=== PATIENT | female | born 1990 | race Caucasian/White ===

== ENCOUNTER 2016-07-24 01:44 | Inpatient (IN) | payer OTHER, MEDICAID ==
[2016-07-24 02:38] LABS: APPEARANCE,URINE CLEAR; BILIRUBIN,URINE NEGATIVE (NEGATIVE); GLUCOSE, URINE NEGATIVE (NEGATIVE); KETONES,URINE NEGATIVE (NEGATIVE); LEUKOCYTE ESTERASE,URINE NEGATIVE (NEGATIVE); NITRITE,URINE NEGATIVE (NEGATIVE); PROTEIN,URINE NEGATIVE (NEGATIVE); URINE SPECIFIC GRAVITY 1.009; UROBILINOGEN,URINE NEGATIVE mg/dL (<2.0)
[2016-07-24 02:38] LABS: AMNISURE (ROM) POSITIVE (NEGATIVE)
[2016-07-24 02:52] LABS: URINE BARBITURATES SCREEN NEGATIVE; URINE METHADONE SCREEN NEGATIVE; URINE OPIATES LOW NEGATIVE; URINE PHENCYCLIDINE SCREEN NEGATIVE
[2016-07-24] MEDS ORDERED: RINGERS SOLUTION,LACTATED 1,000 ML IV ONE (03:01)
[2016-07-24] MEDS ORDERED: RINGERS SOLUTION,LACTATED 1,000 ML IV PRN (03:01)
[2016-07-24 03:29] LABS: ABSOLUTE BASOPHILS # (AUTO) 0.1 10^3/uL (0.0-0.2); ABSOLUTE EOSINOPHILS # (AUTO) 0.1 10^3/uL (0.0-0.6); ABSOLUTE LYMPHOCYTES (AUTO) 2.1 10^3/uL (0.5-4.7); ABSOLUTE NEUT (AUTO) 8.8 10^3/uL (1.7-8.2); BASOPHILS % (AUTO) 0.4 % (0-2); EOSINOPHILS % (AUTO) 0.8 % (0-6); HEMATOCRIT 38.8 % (36.0-47.0); HEMOGLOBIN 13.2 g/dL (12.0-15.5); HGB HCT DIFFERENCE 0.8; LYMPHOCYTES % (AUTO) 17.2 % (13-45); MEAN CORPUSCULAR HEMOGLOBIN 29.2 pg (27.0-33.4); MEAN CORPUSCULAR HGB CONC 34.1 g/dL (32.0-36.0); MEAN CORPUSCULAR VOLUME 86 fl (80-97); MONOCYTES % (AUTO) 8.3 % (3-13); RED BLOOD COUNT 4.53 10^6/uL (3.72-5.28); SEGMENTED NEUTROPHILS % (AUTO) 73.3 % (42-78); WHITE BLOOD COUNT 12.1 10^3/uL (4.0-10.5)
[2016-07-24] MEDS ORDERED: MISOPROSTOL 0.2 MG TABLET ONE ×2 (04:55→04:57)
[2016-07-24] MEDS ORDERED: OXYTOCIN/NORMAL SALINE 0 UNIT/0 ML RTUINJ ONE (04:55)
[2016-07-24] MEDS ORDERED: LIDOCAINE 1% INJ-PF (10 MG/ML) 30 ML SDV ONE ×2 (04:55→04:57)
[2016-07-24] MEDS ORDERED: OXYTOCIN/NORMAL SALINE 20 UNIT/1,000 ML RTUINJ ONE (04:57)
[2016-07-24] MEDS ORDERED: DIPH/PERTUSS(ACELL)/TETANUS VAC/PF 0.5 ML SYR (>=10YO) IM PRN (05:23)
[2016-07-24] MEDS ORDERED: OXYTOCIN/NORMAL SALINE 1,000 ML IV PRN (05:23)
[2016-07-24] MEDS ORDERED: DIBUCAINE 1% OINTMENT 28 GM TP PRN (05:23)
[2016-07-24] MEDS ORDERED: BENZOCAINE/MENTHOL AEROSOL SPRAY 56 ML TOP PRN (05:23)
[2016-07-24] MEDS ORDERED: ZOLPIDEM TARTRATE 5 MG TABLET PO PRN (05:23)
[2016-07-24] MEDS ORDERED: MEASLES,MUMPS&RUBELLA VACC/PF 0.5 ML VIAL SUBCUT PRN (05:23)
[2016-07-24] MEDS ORDERED: ACETAMINOPHEN WITH CODEINE #3 TABLET ONE (05:42)
[2016-07-24] MEDS: ACETAMINOPHEN WITH CODEINE #3 TABLET PO PRN ×3 (05:42→21:52)
--- NOTE | 2016-07-24 06:53 | Delivery Summary ---
Del Sum A-C Datetime Report Generated by CPN: 07/24/2016 06:52 ADMISSION DATA Chief Complaint: Uterine Contractions; Suspected Ruptured Membranes Indication for Induction: PROM; Maternal Diabetes Admission Impression: Term, Intrauterine ; Ruptured Membranes Admit Provider Comments: 26yo at 38+4ega (pelvis proven to 6#9oz at 36wks) presents for SROM at 4.5/70/-2. c/b GDM - diet controlled. GBS negative. Rh negative. G1 - downs syndrome. Informaseq no aneuploidy. Anesthesia notified re: request for IV. EFW approx 6-7#. Anticipate . DELIVERY PERSONNEL Delivery Doctor:: Tania Waggoner MD Labor and Delivery Nurse:: Marcia Patton RN Labor and Delivery Nurse:: Rekha Joshi RN Additional Personnel: : Christine Dominguez RN MATERNAL INFORMATION Delivery Anesthesia: None Medications After Delivery: Pitocin Drip 20 Units/1000ml NSS Maternal Complications: Precipitous Labor (<3hrs) Provider Comments: VMI delivered in OXANA presentation. Loose nuchal cord reduced. Shoulders and body delivered w/o difficulty. Cord doubly clamped and cut and infant to maternal abdomen for skin to skin and NRP. Placenta delivered intact spontaneously. FF at U. Good hemostasis after repair. Apgars 7/9. Weight pending. Mother and baby stable upon provider leaving the room. LABOR SUMMARY EDC: 08/03/2016 00:00 No. Babies in Womb: 1 Attempted: No Labor Anesthesia: None LABOR INFORMATION Reason for Induction: Not Applicable Onset of Labor: 07/24/2016 00:15 Oxytocin: N/A Group B Beta Strep: Negative Antibiotics # of Doses: 0 Steroids Given: None Reason Steroids Not Administered: Not Applicable MEMBRANES Membranes Rupture Method: Spontaneous Rupture of Membranes: 07/24/2016 00:15 Length of Rupture (hr): 4.87 Amniotic Fluid Color: Clear Amniotic Fluid Amount: Small Amniotic Fluid Odor: Normal STAGES OF LABOR Stage 3 hr: 0 Stage 3 min: 3 Total Time in Labor hr: 4 Total Time in Labor min: 55 VAGINAL DELIVERY Laceration Extension: First Degree Laceration Type: Periurethral Laceration Repair: Yes Laceration Repair Note: Periclitoral superficial laceration repaired in usual fashion for hemostasis. Sponge Count Correct: N/A Sharps Count Correct: Yes CSECTION DELIVERY Primary Indication: N/A Secondary Indication: N/A CSection Incidence: N/A Labor: N/A Elective: N/A CSection Incision: N/A BABY A INFORMATION Infant Delivery Date/Time: 07/24/2016 05:07 Method of Delivery: Vaginal Born in Route : No : N/A Forceps: N/A Vacuum Extraction: N/A Shoulder Dystocia : No PRESENTATION/POSITION BABY A Presentation: Cephalic Cephalic Presentation: Vertex Vertex Position: Left Occipital Anterior Breech Presentation: N/A PLACENTA INFORMATION BABY A Placenta Delivery Time : 07/24/2016 05:10 Placenta Method of Delivery: Spontaneous Placenta Status: Delivered SCORES BABY A Heart Rate 1 min: >100 bpm Resp Effort 1 min: Slow, Irregular Reflex Irritability 1 min: Cough or Sneeze or Pulls Away Muscle Tone 1 min: Active Motion Color 1 min: Blue/Pale Resuscitation Effort 1 min: Tactile Stimulation SCORE 1 MIN: 7 Heart Rate 5 min: >100 bpm Resp Effort 5 min: Good Cry Reflex Irritability 5 min: Cough or Sneeze or Pulls Away Muscle Tone 5 min: Active Motion Color 5 min: Body Point Place, Extremities Blue Resuscitation Effort 5 min: Tactile Stimulation SCORE 5 MIN: 9 INFANT INFORMATION BABY A Gestational Age at Delivery: 38.4 Gestational Status: Early Term- 37- 38.6 Weeks Outcome : Liveborn Infant Condition : Stable Infant Sex: Male IDENTIFICATION BABY A Infant Verification Date/Time: 07/24/2016 05:14 ID Band Number: [id number] Mother's Name Verified: Yes Infant RN Verifying Infant: Johnathon EVON Johnson Additional Verifying Personnel: Samira Dominguez RN WEIGHT/LENGTH BABY A Infant Birthweight (gm): 3135 Infant Weight (lb): 6 Infant Weight (oz): 15 Infant Length (in): 19.00 Infant Length (cm): 48.26 CORD INFORMATION BABY A No. Cord Vessels: 3 Nuchal Cord : Around Neck x1, Loose Cord Blood Taken: Yes-For Eval (Mom's Blood Type - or O+) ASSESSMENT BABY A Infant Complications: None Infant Respirations: Appears Normal Skin to Skin: Yes Skin to Skin Time (min): 60 Mesh Man/ALS Called : No Infant Care By: Annette Joshi RN Transferred To: Remains with Mother BABY B INFORMATION : N/A SIGNATURES Signature: with User ID: [email or web address]
--- NOTE | 2016-07-24 07:43 | Admission Physical ---
Datetime Report Generated by CPN: 07/24/2016 07:43 CURRENT ADMISSION Chief Complaint: Uterine Contractions; Suspected Ruptured Membranes Indication for Induction: PROM; Maternal Diabetes Admit Plan: Admit to Unit; Initiate Labor Augmentation Protocol ALLERGIES Medication Allergies: Yes Medication Allergies: naproxen sodium/Hives (07/24/2016) Latex: No Latex Allergies Food Allergies: NA Environmental Allergies: NA OBSTETRICAL HISTORY EDC: 08/03/2016 00:00 : 2 Para: 1 Term: 0 : 1 SAB: 0 IAB: 0 Ectopic: 0 Livin Cesareans: 0 VBACs: 0 Multiple Births: 0 Gestational Diabetes: Yes Rh Sensitization: No Incompetent Cervix: No SAIMA: No Infertility: No ART Treatment: No Uterine Anomaly: No IUGR: No Hx Previous C/S: No Macrosomia: No Hx Loss/Stillborn: No PIH: No Hx : No Placenta Previa/Abruption: No Depression/PP Depression: No PTL/PROM: No Post Hemorrhage: No Current Procedures: Ultrasound Obstetrical History Comments: G1- @ 36.2 wks gest-Male 6lbs 9oz. G2-Current SEE RECORDS Alcohol: No Marijuana : No Cocaine: No Other Illicit Drugs: No Cigarettes: Never Smoker. 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 Surgery: No Heart Disease: No Hosp/Surgery: Yes Autoimmune Disorder: No Anesthetic Complications: No Kidney Disease: No Abnormal Pap Smear: No Neuro/Epilepsy: No Psychiatric Disorders: No Other Medical Diseases: No Hepatitis/Liver Disease: No Significant Family History: No Varicosities/Phlebitis: No Trauma/Violence : No Thyroid Dysfunction: No Medical History Comments: childbirth; Left arm injury at 2y/o; INFECTIOUS HISTORY Gonorrhea: No Genital Herpes: No Chlamydia: No Tuberculosis: No Syphilis: No Hepatitis: No HIV/AIDS Exposure: No Rash or Viral Illness: No HPV: No PHYSICAL EXAM General: Normal HEENT: Normal Neurologic: Normal Thyroid: Normal Heart: Normal Lungs: Normal Breast: Deferred Back: Normal Abdomen: Normal Genitourinary Exam: Normal Extremities: Normal DTRs: Normal Pelvic Type: Adequate Vital Signs: Reviewed VAGINAL EXAM Dilatation: 5 Effacement: 70 Station: -2 MEMBRANES Membranes: Ruptured Amniotic Fluid Color: Clear FETUS A EGA: 38.4 Monitoring: External US FHR- Baseline: 130 Variability: Moderate 6-25bpm Accelerations: 15X15 Decelerations: None FHR Category: Category I Estimated Weight (gm): 3008 Presentation: Vertex Admit Comment: 26yo at 38+4ega (pelvis proven to 6#9oz at 36wks) presents for SROM at 4.5/70/-2. c/b GDM - diet controlled. GBS negative. Rh negative. G1 - downs syndrome. Informaseq no aneuploidy. Anesthesia notified re: request for IV. EFW approx 6-7#. Anticipate . PLANS FOR LABOR AND DELIVERY Labor and Delivery: None Feeding Preference: Breast Benefit of Breast Feed Discussed: Yes Circumcision: Yes INFORMED CONSENT Informed Consent Obtained: Vaginal Delivery; Risks, Benefits and Alternatives Discussed Signature: with User ID: [email or web address]
--- NOTE | 2016-07-24 08:01 | L&D Flow Sheet ---
LD Flowsheet Datetime Report Generated by CPN: 07/24/2016 08:00 Datetime: 07/24/2016 07:25 Vital Signs Stage of : Recovery (Maria Fernanda Reyna, RN) Datetime: 07/24/2016 07:17 NBP Sys/Selena/Mean (mmHg): 127 (QS system process) : 71 (QS system process) : 93 (QS system process) Pulse: 82 (QS system process) Datetime: 07/24/2016 07:15 Vital Signs Stage of : Recovery (Maria Fernanda Reyna, RN) Datetime: 07/24/2016 07:14 Vital Signs Stage of : Recovery (Crystal [place], RN) Datetime: 07/24/2016 07:13 Vital Signs Stage of : Recovery (Crystal [place], RN) Datetime: 07/24/2016 06:45 Vital Signs Stage of : Recovery (Crystal Pooja, RN) NBP Sys/Selena/Mean (mmHg): 121 (QS system process) : 66 (QS system process) : 87 (QS system process) Pulse: 76 (QS system process) Datetime: 07/24/2016 06:31 NBP Sys/Selnea/Mean (mmHg): 119 (QS system process) : 66 (QS system process) : 87 (QS system process) Pulse: 81 (QS system process) Datetime: 07/24/2016 06:30 Vital Signs Stage of : Recovery (Crystal Pooja, RN) Datetime: 07/24/2016 06:17 NBP Sys/Selena/Mean (mmHg): 118 (QS system process) : 61 (QS system process) : 84 (QS system process) Pulse: 86 (QS system process) Datetime: 07/24/2016 06:15 Vital Signs Stage of : Recovery (Marcia Patton, RN) Pain Pain Scale: 1 (Marcia Whitfields, RN) Pain Presence: Intermittent (Marcia Atkinsrass, RN) Pain Type: Sharp (Marcia Whitfields, RN) Pain Location: Abdomen (Marcia Atkinsrass, RN) Pain Goal: 1 (Crystal [place], RN) Pain Relief Measures: Comfort Measures (Marcia Hutchisonergrass, RN) Datetime: 07/24/2016 06:02 NBP Sys/Selena/Mean (mmHg): 121 (QS system process) : 63 (QS system process) : 87 (QS system process) Pulse: 86 (QS system process) Datetime: 07/24/2016 06:00 Vital Signs Stage of : Recovery (Crystal [place], RN) Datetime: 07/24/2016 05:45 Vital Signs Stage of : Recovery (Crystal [place], RN) NBP Sys/Selena/Mean (mmHg): 126 (QS system process) : 70 (QS system process) : 91 (QS system process) Pulse: 88 (QS system process) Pain Relief Measures: Pain Medication Given (Crystal Pooja, RN) Datetime: 07/24/2016 05:42 Vital Signs Stage of : Recovery (Crystal [place], RN) Datetime: 07/24/2016 05:30 Vital Signs Stage of : Recovery (Crystal [place], RN) NBP Sys/Selena/Mean (mmHg): 128 (QS system process) : 70 (QS system process) : 93 (QS system process) Pulse: 88 (QS system process) Pain Pain Scale: 4 (Crystal Pooja, RN) Pain Presence: Intermittent (Crystal Pooja, RN) Pain Type: Burning (Crystal [place], RN) Pain Location: Perineum (Crystal Pooja, RN) Pain Goal: 1 (Crystal [place], RN) Pain Relief Measures: Comfort Measures (Crystal [place], RN) Datetime: 07/24/2016 05:26 NBP Sys/Selena/Mean (mmHg): 142 (QS system process) : 72 (QS system process) : 96 (QS system process) Pulse: 88 (QS system process) Datetime: 07/24/2016 05:15 Vital Signs Stage of : Recovery (Crystal [place], RN) Pain Pain Scale: 4 (Crystal Pooja, RN) Pain Presence: Intermittent (Crystal Pooja, RN) Pain Type: Burning (Crystal [place], RN) Pain Location: Perineum (Crystal Pooja, RN) Pain Goal: 1 (Crystal Pooja, RN) Pain Relief Measures: Comfort Measures (Crystal [place], RN) Datetime: 07/24/2016 05:10 Vital Signs Stage of : Labor (Marcia Patton, RN) Stage 2 Comments: Delivery of placenta. (Crystal Pooja, RN) Datetime: 07/24/2016 05:07 Vital Signs Stage of : Labor (Crystal [place], RN) Stage 2 Comments: Vaginal delivery of viable baby boy. (Crystal [place]loo, RN) Datetime: 07/24/2016 04:58 Vital Signs Stage of : Labor (Crystal [place], RN) Communication Communication: Call/Page Placed to Provider (Crystal Pooja, RN) Provider Notified (Name): Waggoner (Crystal Pooja, RN) Notification Reason: Status Update (Crystal [place], RN) Communication Comments: Pt involuntarily pushing. (Crystal [place], RN) Datetime: 07/24/2016 04:56 Stage 2 Pushing: Urge to Push (Crystal Pooja, RN) Datetime: 07/24/2016 04:54 Vaginal Exam Dilatation (cm): 9.0 (Marcia Patton RN) Effacement (%): 90 (Marcia Patton RN) Station: -1 (Marcia Patton RN) Exam by: Jose Angel Patton RN (Marcia Patton RN) Vaginal Bleeding: Normal Show (Crystal Pooja, RN) Cervix, Consistency: Soft (Crystal [place], RN) Cervix, Position: Anterior (Crystal [place], RN) Datetime: 07/24/2016 04:45 Uterine Activity Monitor Mode: External; Palpation (Crystal [place], RN) Frequency (min): 4 (Crystal Pooja, RN) Quality: Strong (Crystal [place], RN) Duration (sec): 80-100 (Crystal Pooja, RN) Duration Criteria: Less than Two 120 Second Contractions (Crystal [place], RN) Resting Tone (Palpate): Relaxed (Crystal [place], RN) Assessment A Monitor Mode: External US (Crystal [place], RN) FHR Baseline Rate : 130 (Crystal Pooja, RN) Variability: Moderate 6-25 bpm (Crystal [place], RN) Accelerations: None (Crystal Pooja, RN) Decelerations: Early (Crystal Pooja, RN) Datetime: 07/24/2016 04:15 I/O Interventions: Up to BR (Crystal Pooja, RN) Datetime: 07/24/2016 04:08 Temperature (F): 98.6 (Crystal Pooja, RN) Temperature (C): 37.0 (QS system process) Datetime: 07/24/2016 04:04 NBP Sys/Selena/Mean (mmHg): 140 (QS system process) : 81 (QS system process) : 106 (QS system process) Pulse: 76 (QS system process) Datetime: 07/24/2016 04:00 Uterine Activity Monitor Mode: External; Palpation (Crystal Pooja, RN) Frequency (min): 5 (Crystal Pooja, RN) Quality: Moderate (Crystal [place], RN) Duration (sec): 60 (Crystal [place]loo, RN) Duration Criteria: Less than Two 120 Second Contractions (Crystal [place], RN) Resting Tone (Palpate): Relaxed (Crystal [place], RN) Assessment A Monitor Mode: External US (Crystal Pooja, RN) FHR Baseline Rate : 130 (Crystal Pooja, RN) Variability: Moderate 6-25 bpm (Crystal [place], RN) Accelerations: 15X15 (Crystal Pooja, RN) Decelerations: None (Crystal [place], RN) Patient Position/Activity: Left Extreme; Semi-Fowlers (Crystal Pooja, RN) Datetime: 07/24/2016 03:55 Patient Care IV/Blood Work: IV Started; IV Bolus Started (Crystal Pooja, RN) Patient Care Comments: 20 G Right wrist (Marcia Waterloo, RN) Patient Care Comments: anesthesia at bedside looking for an IV site. (Crystal [place]loo, RN) Datetime: 07/24/2016 03:30 Uterine Activity Monitor Mode: External; Palpation (Crystal [place], RN) Frequency (min): 7 (Crystal Pooja, RN) Quality: Moderate (Crystal Pooja, RN) Duration (sec): 60-90 (Crystal [place], RN) Duration Criteria: Less than Two 120 Second Contractions (Crystal Pooja, RN) Resting Tone (Palpate): Relaxed (Crystal [place], RN) Assessment A Monitor Mode: External US (Crystal Pooja, RN) FHR Baseline Rate : 130 (Crystal Pooja, RN) Variability: Moderate 6-25 bpm (Crystal Pooja, RN) Accelerations: 15X15 (Crystal Pooja, RN) Decelerations: None (Crystal [place]loo, RN) Patient Position/Activity: Left Extreme; Semi-Fowlers (Crystal Pooja, RN) Datetime: 07/24/2016 03:28 Patient Care Comments: Multiple attempts to start IV with unsuccessful results, anesthesia consulted. (Crystal Pooja, RN) Datetime: 07/24/2016 03:19 Procedures: Labs Drawn (Crystal [place]loo, RN) Datetime: 07/24/2016 03:04 Procedures: Consents Signed (Crystal Pooja, RN) Datetime: 07/24/2016 03:00 Uterine Activity Monitor Mode: External; Palpation (Crystal Pooja, RN) Frequency (min): 6-8 (Crystal Pooja, RN) Quality: Moderate (Crystal Pooja, RN) Duration (sec): 70-100 (Crystal Pooja, RN) Duration Criteria: Less than Two 120 Second Contractions (Crystal Pooja, RN) Resting Tone (Palpate): Relaxed (Crystal [place], RN) Assessment A Monitor Mode: External US (Crystal [place], RN) FHR Baseline Rate : 130 (Crystal Pooja, RN) Variability: Moderate 6-25 bpm (Crystal Pooja, RN) Accelerations: 15X15 (Crystal [place], RN) Decelerations: None (Crystal Pooja, RN) Patient Position/Activity: Left Tilt; Semi-Fowlers (Crystal Pooja, RN) Datetime: 07/24/2016 02:17 Vaginal Exam Dilatation (cm): 4.5 (Crystal Pooja, RN) Effacement (%): 70 (Crystal Pooja, RN) Station: -2 (Marcia Patton RN) Exam by: Jose Angel Patton RN (Marcia Patton RN) Membrane Status: Ruptured (Christine Dominguez RN) Membranes Ruptured Date/Time: 07/24/2016 00:15 (Christine Dominguez RN) Membranes Rupture Method: Spontaneous (Christine Dominguez RN) Amniotic Fluid Color: Clear (Christine Dominguez RN) Amniotic Fluid Amount: Small (Chrsitine Dominguez RN) Amniotic Fluid Odor: Normal (Christine Dominguez RN) Vaginal Bleeding: None (Marcia Patton RN) Cervix, Consistency: Soft (Marcia Patton RN) Datetime: 07/24/2016 02:07 Uterine Activity Monitor Mode: External; Palpation (Marcia Patton RN) Frequency (min): 1 (Marcia Patton RN) Quality: Moderate (Marcia Patton RN) Duration (sec): 110 (Crystal Pooja, RN) Duration Criteria: Less than Two 120 Second Contractions (Crystal Pooja, RN) Resting Tone (Palpate): Relaxed (Crystal Pooja, RN) Assessment A Monitor Mode: External US (Crystal Pooja, RN) FHR Baseline Rate : 135 (Crystal [place], RN) Variability: Minimal - Undetectable to <=5 bpm (Crystal Pooja, RN) Accelerations: 15X15 (Crystal [place], RN) Decelerations: None (Crystal Pooja, RN) Patient Position/Activity: Left Lateral; Semi-Fowlers (Crystal [place]loo, RN) Datetime: 07/24/2016 02:00 NBP Sys/Selena/Mean (mmHg): 130 (QS system process) : 76 (QS system process) : 97 (QS system process) Pulse: 87 (QS system process) Datetime: 07/24/2016 01:53 Frequency (min): About ever 5 minutes (Crystal Pooja, RN) Assessment A Monitor Mode: External US (Crystal Pooja, RN) Pain Pain Scale: 4 (Marcia Hutchisonergrass, RN) Pain Presence: Intermittent (Marcia Hutchisonergrass, RN) Pain Type: Contraction (Marcia Hutchisonergrass, RN) Pain Location: Abdomen; Perineum (Marcia Hutchisonergrass, RN) Pain Goal: 1 (Marcia Pooja, RN) Pain Relief Measures: Comfort Measures (Marcia Whitfields, RN) Pain Coping: Talking Through Contractions (Marcia Patton, RN) Vaginal Bleeding: Scant (Marcia Hutchisonergrass, RN) Maternal Assessment Level of Consciousness: Fully Conscious (Crystal Pooja, RN) DTR's/Clonus: DTRs 1+; No Clonus (Crystal [place]loo, RN) Headache: Denies (Crystal Pooja, RN) Breath Sounds, Left: Clear and Equal (Crystal [place], RN) Breath Sounds, Right: Clear and Equal (Crystal Pooja, RN) Nausea/Vomiting: Denies (Crystal [place]loo, RN) RUQ Epigastric Pain: Denies (Crystal [place]loo, RN) Teaching Instructional Method: Verbal; Family/Support Person Instructed; Verbalized Understanding (Crystal Pooja, RN)
[2016-07-24] MEDS: SENNOSIDES/DOCUSATE 8.6-50 MG 1 EACH TABLET PO SCH (10:48)
[2016-07-24] MEDS: DOCUSATE SODIUM 100 MG CAPSULE PO SCH ×2 (10:48→17:28)
[2016-07-24] MEDS: PRENATAL VITAMIN W-O CA NO5/FE FUMARATE/FA CAPSULE PO SCH (10:48)
[2016-07-24] MEDS: FERROUS SULFATE 325 MG TABLET PO SCH ×2 (10:49→17:29)
--- NOTE | 2016-07-24 19:01 | L&D Flow Sheet ---
LD Flowsheet Datetime Report Generated by CPN: 07/24/2016 19:00 Datetime: 07/24/2016 07:25 Stage of : Recovery (Maria Fernanda Reyna, RN) Datetime: 07/24/2016 07:17 NBP Sys/Selena/Mean (mmHg): 127 (QS system process) : 71 (QS system process) : 93 (QS system process) Pulse: 82 (QS system process) Datetime: 07/24/2016 07:15 Stage of : Recovery (Maria Fernanda Reyna, RN) Datetime: 07/24/2016 07:14 Stage of : Recovery (Crystal [place] Ariel, RN) Datetime: 07/24/2016 07:13 Stage of : Recovery (Crystal Pooja, RN)
[2016-07-24] MEDS: IBUPROFEN 800 MG TABLET PO SCH (22:18)
--- NOTE | 2016-07-25 06:01 | L&D General Admission ---
General Admit Datetime Report Generated by CPN: 07/25/2016 06:00 INFORMATION Patient Age: 26 (07/24/2016 01:44:QS system process) EDC: 08/03/2016 00:00 (07/24/2016 01:48:Christine Dominguez RN) : 2 (07/24/2016 01:48:Christine Dominguez RN) Para: 1 (07/24/2016 01:48:Marcia Patton RN) Term: 0 (07/24/2016 01:48:Christine Dominguez RN) : 1 (07/24/2016 01:48:Christine Dominguez RN) Spontaneous Abortions: 0 (07/24/2016 01:48:Christine Dominguez RN) Induced Abortions: 0 (07/24/2016 01:48:Christine Dominguez RN) Livin (07/24/2016 01:48:Christine Dominguez RN) Cesareans: 0 (07/24/2016 01:48:Christine Dominguez RN) VBACs: 0 (07/24/2016 01:48:Christine Dominguez RN) Ectopic: 0 (07/24/2016 01:48:Christine Dominguez RN) Multiple Births: 0 (07/24/2016 01:48:Christine Dominguez RN) Baby, Number in Womb: 1 (07/24/2016 01:48:Christine Dominguez RN) CARE Primary It Help Desk Technician: [facility] (07/24/2016 01:48:Christine Dominguez RN) Adequate Care: Yes (07/24/2016 01:48:Christine Dominguez RN) Prepregnancy Weight (lb): 152 (07/24/2016 01:48:Christine Dominguez RN) Prepregnancy Weight (kg): 69.1 (07/24/2016 01:48:QS system process) Height (in): 61 (07/24/2016 22:20:QS system process) ALLERGIES Medication Allergy: Yes (07/24/2016 01:48:Marcia Patton RN) Medication Allergies: naproxen sodium/Hives (07/24/2016) (07/24/2016 06:09:QS system process) Latex Allergy: No Latex Allergies (07/24/2016 01:48:Marcia Patton RN) Food Allergies: NA (07/24/2016 01:48:Marcia Patton RN) Environmental Allergies: NA (07/24/2016 01:48:Marcia Patton RN) COMMUNICATION Primary Language: Italian (07/24/2016 01:48:Christine Dominguez RN) Medical Tx Preferred Language: Italian (07/24/2016 01:48:Christine Dominguez RN) Communication Barrier(s): None (07/24/2016 01:48:Christine Dominguez RN) DEMOGRAPHICS Address: [address] [place] [id number] (07/24/2016 01:44:QS system process) Zipcode: [phone] (07/24/2016 01:44:QS system process) Home (07/24/2016 01:44:QS system process) Work (07/24/2016 01:44:QS system process) SSN: [id number] (07/24/2016 01:44:QS system process) Next of Kin Name: AMIRAH MILLER JR (07/24/2016 01:44:QS system process) Next of Kin (07/24/2016 01:44:QS system process) Next of Kin Relationship: OR (07/24/2016 01:44:QS system process) Date of : 1990 (07/24/2016 01:44:QS system process) Marital Status: Single (07/24/2016 06:09:QS system process) Sex: Female (07/24/2016 01:44:QS system process) Race: (07/24/2016 01:44:QS system process) Ethnicity: Non- or (07/24/2016 01:44:QS system process) Quaker: No Tenriism Info Avail. (07/24/2016 01:44:QS system process) DRUG AND ALCOHOL USE Alcohol: No (07/24/2016 01:48:Marcia Patton RN) Cigarettes: Never Smoker. 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: [facility] (07/24/2016 01:48:Marcia Patton RN) Feeding Preference: Breast (07/24/2016 01:48:Marcia Patton RN) Benefit of Breast Feed Discussed: Yes (07/24/2016 01:48:Marcia Patton RN) Circumcision: Yes (07/24/2016 01:48:Marcia Patton RN) Classes Attended: No (07/24/2016 01:48:Marcia Patton RN) Tubal Ligation: No (07/24/2016 01:48:Marcia Patton RN) Tubal Authorization Signed: N/A (07/24/2016 01:48:Marcia Patton RN) Consent: N/A (07/24/2016 01:48:Marcia Patton RN) Consent Signed: N/A (07/24/2016 01:48:Marcia Patton RN) Plans for Labor and Delivery: None (07/24/2016 01:48:Marcia Patton RN) Support Person: Amirah Miller Jr. (07/24/2016 01:48:Marcia Patton RN) Cultural/Spritual Practice: No (07/24/2016 01:48:Marcia Patton RN) Spir/Cult Dietary Needs: No (07/24/2016 01:48:Marcia Patton RN) LIVING SITUATION/DISCHARGE PLAN Living Arrangements: House (07/24/2016 01:48:Marcia Patton RN) Adequate Access to:: Electric; Heat; Refrigeration; Plumbing/Running water; Phone; Transportation (07/24/2016 01:48:Marcia Patton RN) WIC Program: Yes (07/24/2016 01:48:Marcia Patton RN) Discharge Relationship Manager Person: Amirah Miller Jr. (07/24/2016 01:48:Marcia Patton RN) Person to Help after Discharge: Amirah Miller Jr. (07/24/2016 01:48:Marcia Patton RN) Currently Using Commun Resources: Yes (07/24/2016 01:48:Marcia Patton RN) Outside Agency/Automotive Service Assistant: Yes (07/24/2016 01:48:Marcia Patton RN) Car Seat for Discharge: Yes (07/24/2016 01:48:Marcia Patton RN) Adoption Requested: No (07/24/2016 01:48:Marcia Patton RN) LABS Blood Type: O Negative (07/24/2016 01:48:Christine Dominguez RN) Antibody Screen: Negative (07/24/2016 01:48:Christine Dominguez RN) Rho(G) this : Yes (07/24/2016 01:48:Christine Dominguez RN) Date Rho(G) Given: 05/16/2016 (07/24/2016 01:48:Christine Dominguez RN) Hemoglobin: 13.2 (07/24/2016 03:20:QS system process) Hematocrit: 38.8 (07/24/2016 03:20:QS system process) MCV: 86 (07/24/2016 03:20:QS system process) Group Beta Strep: Negative (07/24/2016 01:48:Christine Dominguez RN) Gonorrhea: Negative (07/24/2016 01:48:Christine Dominguez RN) Chlamydia: Negative (07/24/2016 01:48:Christine Dominguez RN) RPR/VDRL: Nonreactive (07/24/2016 01:48:Christine Dominguez RN) HIV Results: Negative (07/24/2016 01:48:Christine Dominguez RN) Hepatitis B: Negative (07/24/2016 01:48:Christine Dominguez RN) Rubella: Immune (07/24/2016 01:48:Christine Dominguez RN) OB/PREVIOUS HISTORY Previous Procedures: Ultrasound (07/24/2016 01:48:Christine Dominguez RN) Current Procedures: Ultrasound (07/24/2016 01:48:Christine Dominguez RN) History of Previous : No (07/24/2016 01:48:Christine Dominguez RN) History of Gestational Diabetes: Yes (07/24/2016 01:48:Christine Dominguez RN) History of PIH: No (07/24/2016 01:48:Christine Dominguez RN) History of Incompetent Cervix: No (07/24/2016 01:48:Christine Dominguez RN) History of Placenta Previa/Abrup: No (07/24/2016 01:48:Christine Dominguez RN) History of Macrosomia: No (07/24/2016 01:48:Christine Dominguez RN) History of IUGR: No (07/24/2016 01:48:Christine Dominguez RN) History of Hemorrhage: No (07/24/2016 01:48:Christine Dominguez RN) History of Loss/Stillborn: No (07/24/2016 01:48:Christine Dominguez RN) History of : No (07/24/2016 01:48:Christine Dominguez RN) History of D (Rh) Sensitization: No (07/24/2016 01:48:Christine Dominguez RN) History Recurrent Loss/Stillborn: No (07/24/2016 01:48:Christine Dominguez RN) History Depression/PP Depression: No (07/24/2016 01:48:Christine Dominguez RN) History of Uterine Anomaly/SAIMA: No (07/24/2016 01:48:Christine Dominguez RN) History of Infertility: No (07/24/2016 01:48:Christine Dominguez RN) History of ART Treatment: No (07/24/2016 01:48:Marcia Patton RN) History of SAIMA: No (07/24/2016 01:48:Christine Dominguez RN) Comments Obstetrical History: G1- @ 36.2 wks gest-Male 6lbs 9oz. G2-Current (07/24/2016 01:48:Christine Dominguez RN) MEDICAL HISTORY Med Hx Diabetes: Yes (07/24/2016 01:48:Christine Dominguez RN) Diabetes Type: Gestational Diabetes (07/24/2016 01:48:Christine Dominguez RN) Med Hx Hypertension: No (07/24/2016 01:48:Christine Dominguez RN) Med Hx Heart Disease: No (07/24/2016 01:48:Christine Dominguez RN) Med Hx Autoimmune Disorder: No (07/24/2016 01:48:Christine Dominguez RN) Med Hx Kidney Disease/UTI: No (07/24/2016 01:48:Christine Dominguez RN) Med Hx Neurologic/Epilepsy: No (07/24/2016 01:48:Marcia Patton RN) Med Hx Psychiatric Disorders: No (07/24/2016 01:48:Christine Dominguez RN) Med Hx Hepatitis/Liver Disease: No (07/24/2016 01:48:Christine Dominguez RN) Med Hx Varicosities/Phlebitis: No (07/24/2016 01:48:Christine Dominguez RN) Med Hx Thyroid Dysfunction: No (07/24/2016 01:48:Christine Dominguez RN) Med Hx Trauma/Violence: No (07/24/2016 01:48:Marcia Patton RN) Med Hx Blood Transfusion: No (07/24/2016 01:48:Christine Dominguez RN) Med Hx Pulmonary (Asthma,TB): No (07/24/2016 01:48:Marcia Patton RN) Med Hx Breast: No (07/24/2016 01:48:Christine Dominguez RN) Med Hx PACS ADMINISTRATOR Surgery: No (07/24/2016 01:48:Christine Dominguez RN) Med Hx Hospitalization/Surgery: Yes (07/24/2016 01:48:Christine Dominguez RN) Med Hx Anesthetic Complications: No (07/24/2016 01:48:Marcia Patton RN) Med Hx Abnormal Pap Smear: No (07/24/2016 01:48:Marcia Patton RN) Other Medical Diseases: No (07/24/2016 01:48:Marcia Patton RN) Med Hx Significant Family Hx: No (07/24/2016 01:48:Marcia Patton RN) Details of Med/Surg Hx: childbirth; Left arm injury at 2y/o; (07/24/2016 01:48:Christine Dominguez RN) INFECTIOUS HISTORY Inf Hx Gonorrhea: No (07/24/2016 01:48:Marcia Patton RN) Inf Hx Chlamydia: No (07/24/2016 01:48:Marcia Patton RN) Inf Hx Syphilis: No (07/24/2016 01:48:Marcia Patton RN) Inf Hx HIV/AIDS: No (07/24/2016 01:48:Marcia Patton RN) Inf Hx Human Papilloma Virus: No (07/24/2016 01:48:Marcia Patton RN) Inf Hx Pt/Partner Genital Herpes: No (07/24/2016 01:48:Marcia Patton RN) Inf Hx Tuberculosis/Exposure: No (07/24/2016 01:48:Marcia Patton RN) Inf Hx Hepatitis B,C: No (07/24/2016 01:48:Marcia Patton RN) Inf Hx Rash or Viral Illness: No (07/24/2016 01:48:Marcia Patton RN) GENETIC HISTORY Gen Hx Age >=35 at SILVIA: No (07/24/2016 01:48:Marcia Patton RN) Gen Hx Thalassemia: No (07/24/2016 01:48:Marcia Patton RN) Gen Hx Congenital Heart Defect: No (07/24/2016 01:48:Marcia Patton RN) Gen Hx Neural Tube Defect: No (07/24/2016 01:48:Marcia Patton RN) Gen Hx Down's Syndrome: Yes (07/24/2016 01:48:Marcia Patton RN) Gen Hx Asher-Sachs: No (07/24/2016 01:48:Marcia Patton RN) Gen Hx Kassandra: No (07/24/2016 01:48:Marcia Patton RN) Gen Hx Familial Dysautonomia: No (07/24/2016 01:48:Marcia Patton RN) Gen Hx Sickle Cell Disease/Trait: No (07/24/2016 01:48:Marcia Patton RN) Gen Hx Hemophilia/Blood Disorder: No (07/24/2016 01:48:Marcia Patton RN) Gen Hx Muscular Dystrophy: No (07/24/2016 01:48:Marcia Patton RN) Gen Hx Cystic Fibrosis: No (07/24/2016 01:48:Marcia Patton RN) Gen Hx Huntingtons Chorea: No (07/24/2016 01:48:Marcia Patton RN) Gen Hx Mental Retardation/Autism: No (07/24/2016 01:48:Marcia Patton RN) Gen Hx Tested for Fragile X: No (07/24/2016 01:48:Marcia Patton RN) Gen Hx Other Inher/Chromosomal: No (07/24/2016 01:48:Marcia Patton RN) Gen Hx Maternal Metabolic DO: No (07/24/2016 01:48:Marcia Patton RN) Gen Hx Pt Father or FOB Defect: No (07/24/2016 01:48:Marcia Patton RN) Gen Hx Other Genetic History: No (07/24/2016 01:48:Marcia Patton RN) Gen Hx Drugs/Meds since LMP: No (07/24/2016 01:48:Marcia Patton RN) Details of Genetic History: First born with down syndrome (07/24/2016 01:48:Marcia Patton RN)
--- NOTE | 2016-07-25 06:01 | L&D Current Admission ---
Current Admit Datetime Report Generated by CPN: 07/25/2016 06:00 ADMISSION INFORMATION Current Admit Date/Time: 07/24/2016 02:40 (07/24/2016 01:53:Marcia Patton RN) Reason for Admission: Rupture of Membranes (07/24/2016 01:53:Marcia Patton RN) Chief Complaint: Suspected Rupture of Membranes (07/24/2016 01:53:Marcia Patton RN) Medications During : Vitamin (07/24/2016 01:53:Marcia Patton RN) EGA per Dates: 38.4 (07/24/2016 01:53:QS system process) Method of Arrival: Wheelchair (07/24/2016 01:53:Marcia Patton RN) Admitted From: Antepartum Unit (07/24/2016 01:53:Marcia Patton RN) Reason for Induction: Not Applicable (07/24/2016 01:53:Mracia Patton RN) Records Available: Yes (07/24/2016 01:53:Marcia Patton RN) General Admission Information: Reviewed (07/24/2016 01:53:Marcia Patton RN) BELONGINGS/ADVANCED DIRECTIVES Valuables/Personal Effects: Purse/Wallet; Cell Phone (07/24/2016 01:53:Marcia Patton RN) Disposition of Belongings: Kept with Patient (07/24/2016 01:53:Marcia Patton RN) Advance Direct for Healthcare: No, and Wants No Information (07/24/2016 01:53:Marcia Patton RN) Durable Power of Experience Planning Strategist: No (07/24/2016 01:53:Marcia Patton RN) Living Will: No (07/24/2016 01:53:Marcia Patton RN) Organ Donor: No (07/24/2016 01:53:Marcia Patton RN) Pt Rights Information Given: Yes (07/24/2016 01:53:Marcia Patton RN) Pt Understands Pt Rights: Yes (07/24/2016 01:53:Marcia Patton RN) LEARNING ASSESSMENT Knowledge Level: Understands L_D Process; Understands Care Activities; Had Pre-Hospital Education (07/24/2016 01:53:Marcia Patton RN) Barriers to Learning: None (07/24/2016 01:53:Marcia Patton RN) Learning Readiness: Motivated (07/24/2016 01:53:Marcia Patton RN) Learns Best By: 1 to 1 Instruction (07/24/2016 01:53:Marcia Patton RN) Learning Needs: Labor and Delivery Process; Pain Management; Symptoms to Report (07/24/2016 01:53:Marcia Ptaton RN) DOMESTIC VIOLANCE SCREENING Dom Viol Threatened/Hurt: No (07/24/2016 01:53:Marcia Patton RN) Hx of Abuse/Neglect past 2yrs: No (07/24/2016 01:53:Marcia Patton RN) Feel Unsafe Going Home: No (07/24/2016 01:53:Marcia Patton RN) Addt'l Observ Indicating Abuse: No (07/24/2016 01:53:Marcia Patton RN) Reason Unable to Complete Screen: N/A, Screen Completed (07/24/2016 01:53:Marcia Patton RN) Considered Personal Harm/Suicide: No (07/24/2016 01:53:Marcia Patton RN) NUTRITIONAL/FUNCTIONAL SCREENING Problem with Appetite >5 Days: No (07/24/2016 01:53:Marcia Patton RN) Chew/Swallow Difficulties: No (07/24/2016 01:53:Marcia Patton RN) Inappropriate Wt Gain/Loss: No (07/24/2016 01:53:Marcia Patton RN) Presence Skin Breakdown/Ulcer: No (07/24/2016 01:53:Marcia Patton RN) Special Diet: No (07/24/2016 01:53:Marcia Patton RN) Pt Requests Home Stager Visit: No (07/24/2016 01:53:Marcia Patton RN) Hx of Any of the Following?: N/A (07/24/2016 01:53:Marcia Patton RN) New Diagnosis of: N/A (07/24/2016 01:53:Marcia Patton RN) Requires Assist w/Ambulation: No (07/24/2016 01:53:Marcia Patton RN) Uses Assist Device to Ambulate: No (07/24/2016 01:53:Marcia Patton RN) Pt Requires Help w/ADL's: No (07/24/2016 01:53:Marcia Patton RN)
[2016-07-25] MEDS: IBUPROFEN 800 MG TABLET PO SCH ×3 (06:03→21:22)
--- NOTE | 2016-07-25 06:16 | L&D Care Plan ---
LD CARE PLANS Datetime Report Generated by CPN: 07/25/2016 06:15 Datetime: 07/24/2016 02:45 Pain State: Risk For (Destinee Johnson RN) Related To: Labor and Delivery Process; Complication(s) of ; Treatment and Procedures; Post (Destinee Johnson RN) Goal(s): Patients Pain will be Assessed and Managed; Patient will Verbalize Adequate Relief of Pain or the Ability to [place] with Current Pain (Destinee Johnson RN) Interventions: Assess Pain Severity on Scale of 0 (None) to 5 (Severe); Assess Type, Location and Intensity of Pain Each Time Client Reports Discomfort and Notify Provider if Unusal Pain Develops; Encourage Proper Breathing and Relaxation Techniques; Offer Alternatives Such as Repositioning, Calm Environment, Massages, Diversional Activities, Ice Pack, Splinting, and Ambulation; Administer Analgesics as Ordered; Assist with Epidural Placement as Appropriate; Evaluate Therapeutic Effectiveness of Medication and Treatments (Destinee Johnson RN) Outcome: Patient will Report Absence or Relief of Pain Consistent with Established Pain Goal (Destinee Johnson RN) Outcome: Patient will have a Decrease in Signs and Symptoms of Discomfort (Destinee Johnson RN) Outcome: Pain will be Controlled During Procedures (Destinee Johnson RN) Anxiety State: Risk For (Destinee Johnson RN) Related To: Labor and Delivery Process; Perceived or Actual Threat to ; Situational Crisis; Medical Interventions; Significant Life Event (Destinee Johnson RN) Goal(s): Patient will have Decreased Anxiety and be able to Function at Acceptable Levels (Destinee Johnson RN) Interventions: Assess Verbal and Nonverbal Behavioral Indicators of Anxiety; Assist Patient to Identify and Verbalize Symptoms of Anxiety; Identify and Demonstrate Techniques to Control Anxiety; Assist Patient with Coping Mechanisms to Manage Anxiety; Provide Theraputic Touch for the Patient; Explain to Patient, Using a Calm Reassuring Approach and Nonmedical Terms, All Activities, Procedures, and Concerns; Instruct Patient and Family about Post Discharge Care, Limitations, Symptoms to Report and Resources Available (Destinee Johnson RN) Outcome: Patient will Identify, Verbalize and Demonstrate Techniques to Control Anxiety (Destinee Johnson RN) Outcome: Patient's Posture, Facial Expressions, Gestures and Activity Level will Reflect Decreased Anxiety (Destinee Johnson RN) Outcome: Patient will Verbalize a Sense of Control and/or Acceptance of the Situation (Destinee Johnson RN) Outcome: Patient will Identify and Utilize Support Person (Destinee Johnson RN) Knowledge Deficit State: Risk For (Destinee Johnson RN) Related To: Labor and Delivery Process; Treatment and Procedures; Impending Alterations in Family Dynamics; Feeding and Care; Community Resources and Available Support Mechanisms (Destinee Johnson RN) Goal(s): Patient will Accurately Verbalize Understanding of Plan of Care and Treatment; Patient and Family will Accurately Verbalize Understanding of the Disease Process (Destinee Johnson RN) Interventions: Assess Motivation and Willingness of Patient/Family to Learn; Assess Preferred Learning Mode: One to One Instruction, Reading, Videos, Group Discussion or Demonstration; Assess Barriers to Learning: Pain, Emotional State, Language Barrier, Cognitive Impairment, Visual or Hearing Deficits; Assess Patient and Family Knowledge of Disease Process, Medications and Treatment; Discuss Therapy and/or Treatment Options, Describe Rationale Behind Management, Therapy and Treatment Recommendations; Instruct Patient and Family on Signs and Symptoms to Report; Instruct Patient and Family on Medication Effects and Side Effects; Provide Appropriate and Timely Education Using Multiple Techniques; Provide Patient and Family with Support Group Information and Resources; Give Clear and Thorough Explanations and Demonstrations (Destinee Johnson RN) Outcome: Patient and Family will Verbalize Understanding of Condition, Treatment and Signs and Symptoms to Report (Destinee Johnson RN) Outcome: Patient will Identify Perceived Learning Needs and Express Motivation to Learn (Destinee Johnson RN) Outcome: Patient will Verbalize Understanding of Desired Content, and/or Performs Desired Skill Prior to Discharge (Destinee Johnson RN) Infection State: Risk For (Destinee Johnson RN) Related To: Prolonged Labor or Induction; Premature/Prolonged Rupture of Membranes; Invasive Procedures; Altered Tissue Integrity (Destinee Johnson RN) Goal(s): The Patient will be Free of Infection, Vital Signs Stable and Lab Work within Normal Parameters (Destinee Johnson RN) Interventions: Instruct and Reinforce Proper Handwashing, Hygiene, and Care Techniques to Patient and Family; Monitor Vital Signs; Monitor Patient for the Following Signs of Infection: Fever, Abdominal Tenderness, Unusual Discharge; Monitor Aminiotic Fluid, Urine and Lochia for Color and Odor; Observe Wounds, Incisions and Invasive Line Sites for Redness, Drainage and Edema; Assess IV Sites per Hospital Policy; Monitor Lab and Test Results and Notify Provider of Abnormal Findings; Assess Nutritional Status and Promote Good Nutrition (Desitnee Johnson RN) Outcome: Patient will Remain Free of Infection (Destinee Johnson RN) Outcome: Infection will be Recognized Early to Allow for Prompt Treatment (Destinee Johnson RN) Outcome: Patient will have Vital Signs Within Expected Range (Destinee Johnson RN) Additional Care Plan State: Actual (Destinee Johnson RN) Nursing Diagnosis or r/t: (Destinee Johnson RN) Goal(s): exclusive (Destinee Johnson RN) Interventions: meet with business analyst consultant (Destinee Johnson RN)
--- NOTE | 2016-07-25 06:48 | PDOC CONSULTATION ---
Consultation Consult Date: 07/25/16 Consult reason:: Coccyx pain History of Present Illness Admission Date/PCP: 07/24/16 02:43 MEL ISABEL MD Patient complains of: Coccyx pain History of Present Illness: FIDENCIO MILLER is a 26 year old female who was admitted for a vaginal delivery of her second child. This was without epidural analgesia. Following the delivery. The patient began experiencing coccyx pain and significant discomfort with any pressure. She states that she did not have anything similar to this on her previous . Past Medical History Cardiac Medical History: Reports: None Pulmonary Medical History: Reports: None Renal/ Medical History: Reports: None GI Medical History: Reports: None Musculoskeltal Medical History: Reports: None Psychiatric Medical History: Reports: None Traumatic Medical History: Reports: None Hematology: Reports: None Infectious Medical History: Reports: None Past Surgical History Past Surgical History: Reports: None Social History Information Source: Patient, [facility] Records Lives with: Family, Spouse/Significant other Smoking Status: Unknown if Ever Smoked Family History Parental Family History Reviewed: No Children Family History Reviewed: No Sibling(s) Family History Reviewed.: No Medication/Allergy Home Medications: Pnv W-O Ca No5/Fe Fumarate/FA [-U Multiple Vitamin Capsule] 1 cap PO DAILY 03/21/13 Allergies/Adverse Reactions: naproxen sodium [From Aleve] Allergy (Unknown, Verified 07/24/16 22:19) Hives Review of Systems All systems: as per H Constitutional: ABSENT: chills, fever(s), headache(s), weight gain, weight loss Eyes: ABSENT: visual disturbances Ears: ABSENT: hearing changes Cardiovascular: ABSENT: chest pain, dyspnea on exertion, edema, orthropnea, palpitations Respiratory: ABSENT: cough, hemoptysis Gastrointestinal: ABSENT: abdominal pain, constipation, diarrhea, hematemesis, hematochezia, nausea, vomiting Genitourinary: ABSENT: dysuria, hematuria Integumentary: ABSENT: rash, wounds Neurological: ABSENT: abnormal gait, abnormal speech, confusion, dizziness, focal weakness, syncope Psychiatric: ABSENT: anxiety, depression, homidical ideation, suicidal ideation Endocrine: ABSENT: cold intolerance, heat intolerance, menstrual abnormalities, polydipsia, polyuria Hematologic/Lymphatic: ABSENT: easy bleeding, easy bruising, lymphadenopathy Physical Exam Vital Signs: Temp Pulse Resp BP Pulse Ox 36.6 C 78 19 131/60 H 100 07/24/16 19:58 07/24/16 19:58 07/24/16 19:58 07/24/16 19:58 07/24/16 19:58 Intake & Output 07/23/16 07/24/16 07/25/16 06:59 06:59 06:59 Weight 80 kg General appearance: PRESENT: mild distress, well-developed Head exam: PRESENT: normocephalic Eye exam: PRESENT: EOMI Respiratory exam: PRESENT: unlabored Cardiovascular exam: PRESENT: RRR Pulses: PRESENT: +1 pedal pulses bilateral Vascular exam: PRESENT: normal capillary refill GI/Abdominal exam: PRESENT: soft Rectal exam: PRESENT: deferred Extremities exam: PRESENT: other - Patient is point tender to palpation over the coccyx. Skin is intact overlying this. There is no erythema or induration. Neurological exam: PRESENT: alert, awake, oriented to person, oriented to place , oriented to time, oriented to situation, CN II-XII grossly intact. ABSENT: motor sensory deficit Psychiatric exam: PRESENT: appropriate affect, normal mood. ABSENT: homicidal ideation, suicidal ideation Skin exam: PRESENT: dry, intact, warm. ABSENT: cyanosis, rash Results Laboratory Results: 07/24/16 03:20 Impressions: Pelvis X-Ray 07/24/16 00:00 IMPRESSION: NEGATIVE STUDY OF THE PELVIS. Status: Imported from PACS Assessment & Plan - Diagnosis (1) Coccygeal pain, acute Is this a current diagnosis for this admission?: YesPlan: 26-year-old status post vaginal delivery of child #2 with post delivery coccyx pain of uncertain etiology. I think this is something that can be treated symptomatically as is currently being done with oral anti-inflammatory medication and a doughnut pillow. If this does not resolve, consideration could be given to injections. Surgery has been mentioned as a possible treatment for this. I am not sure I concur. Identical at the follow the patient on an outpatient basis if her pain does not resolve - Time Time Spent: 50 to 70 Minutes Anticipated discharge: Home Within: within 24 hours
[2016-07-25 07:57] LABS: HEMATOCRIT 32.9 % (36.0-47.0); HGB HCT DIFFERENCE 0.4; MEAN CORPUSCULAR HEMOGLOBIN 29.2 pg (27.0-33.4); MEAN CORPUSCULAR HGB CONC 33.8 g/dL (32.0-36.0); MEAN CORPUSCULAR VOLUME 86 fl (80-97); RED BLOOD COUNT 3.82 10^6/uL (3.72-5.28); RED CELL DISTRIBUTION WIDTH 14.4 % (11.5-14.0); WHITE BLOOD COUNT 12.4 10^3/uL (4.0-10.5)
[2016-07-25 08:04] LABS: HEMOGLOBIN 11.1 g/dL (12.0-15.5)
[2016-07-25] MEDS: PRENATAL VITAMIN W-O CA NO5/FE FUMARATE/FA CAPSULE PO SCH (09:23)
[2016-07-25] MEDS: FERROUS SULFATE 325 MG TABLET PO SCH ×2 (09:24→17:58)
[2016-07-25] MEDS: SENNOSIDES/DOCUSATE 8.6-50 MG 1 EACH TABLET PO SCH (09:24)
[2016-07-25] MEDS: DOCUSATE SODIUM 100 MG CAPSULE PO SCH ×2 (09:24→17:58)
--- NOTE | 2016-07-25 12:01 | PDOC PROGRESS REPORT ---
Subjective-OB Subjective: Post Delivery Day: 26 year old. Denies any needs at this time pt sitting up offers no complaints previous pelvic pain [id number] mild lochia evaluated by orthopedic surgeon- no further recommendations anticipate d/c in AM Physical Exam (OB) Vital Signs: Temp Pulse Resp BP Pulse Ox 97.8 F 71 17 114/56 L 98 07/25/16 07:32 07/25/16 07:32 07/25/16 07:32 07/25/16 07:32 07/25/16 07:32 Intake & Output 07/24/16 07/25/16 07/26/16 06:59 06:59 06:59 Intake Total 600 Output Total 1 Balance 599 Weight 80 kg - PIH/Pre-Eclampsia Clonus: Negative - Lochia Lochia Amount: Scant < 10 ml Lochia Color: Rubra/Red - Abdomen Description: Tender Hernia Present: No Fundal Description: Firm, Midline Fundal Height: u/u - u/2 Objective-Diagnostic Laboratory: 07/25/16 07:39 07/25/16 07/25/16 07:39 07:42 WBC 12.4 H RBC 3.82 Hgb 11.1 L D Hct 32.9 L MCV 86 MCH 29.2 MCHC 33.8 RDW 14.4 H Plt Count 155 Blood Type O NEGATIVE Assessment and Plan(PN) - Disposition Anticipated Discharge: Home
[2016-07-25] MEDS: ACETAMINOPHEN WITH CODEINE #3 TABLET PO PRN (15:08)
[2016-07-26] MEDS: IBUPROFEN 800 MG TABLET PO SCH (05:45)
[2016-07-26] MEDS: ACETAMINOPHEN WITH CODEINE #3 TABLET PO PRN (07:54)
[2016-07-26 08:26] VITALS: BP 121/58
[2016-07-26] MEDS: PRENATAL VITAMIN W-O CA NO5/FE FUMARATE/FA CAPSULE PO SCH (09:07)
[2016-07-26] MEDS: FERROUS SULFATE 325 MG TABLET PO SCH (09:07)
[2016-07-26] MEDS: SENNOSIDES/DOCUSATE 8.6-50 MG 1 EACH TABLET PO SCH (09:07)
[2016-07-26] MEDS: DOCUSATE SODIUM 100 MG CAPSULE PO SCH (09:07)
--- NOTE | 2016-07-26 09:35 | PDOC PROGRESS REPORT ---
Subjective-OB Subjective: Post Delivery Day: 26 year old. Denies any needs at this time Doing well, no c/o, eating well, voiding, scant bleeding, ready to go home Physical Exam (OB) Vital Signs: Temp Pulse Resp BP Pulse Ox 98.0 F 68 16 121/58 L 98 07/26/16 08:45 07/26/16 08:45 07/26/16 08:45 07/26/16 08:45 07/26/16 08:45 Intake & Output 07/25/16 07/26/16 07/27/16 06:59 06:59 06:59 Intake Total 900 Output Total 1 Balance 899 - PIH/Pre-Eclampsia Clonus: Negative - Lochia Lochia Amount: Scant < 10 ml Lochia Color: Rubra/Red - Abdomen Description: Soft, Round Hernia Present: No Fundal Description: Firm, Midline Fundal Height: u/u - u/2 Objective-Diagnostic Laboratory: 07/25/16 07:39 07/25/16 07:42 Blood Type O NEGATIVE Assessment and Plan(PN) - Assessment and Plan (1) Gestational diabetes mellitus Qualifiers: Gestational diabetes mellitus control: diet-controlled Is this a current diagnosis for this admission?: Yes (2) Normal vaginal delivery Is this a current diagnosis for this admission?: Yes - Time Spent with Patient Time with patient: Less than 15 minutes Medications reviewed and adjusted accordingly: Yes - Disposition Anticipated Discharge: Home Within: Other - home today
--- NOTE | 2016-07-26 09:39 | PDOC DISCHARGE SUMMARY ---
Final Diagnosis Discharge Date: 07/26/16 - Final Diagnosis (1) Gestational diabetes mellitus Is this a current diagnosis for this admission?: Yes (2) Normal vaginal delivery Is this a current diagnosis for this admission?: Yes Discharge Data - Discharge Medication Home Medications: Pnv W-O Ca No5/Fe Fumarate/FA [-U Multiple Vitamin Capsule] 1 cap PO DAILY 03/21/13 Gestational Age: 38.4 Reason(s) for Admission: PROM, Gestional Diabetes Procedures: NST, Ultrasound Intrapartum Procedure(s): Spontaneous Vaginal Delivery Complication(s): Laceration-Periurethral Laceration-Degree: 1st - [place] Data Baby 1 Male at 1 minute: 7 at 5 minutes: 9 Weight: 3.147 kg Home with Mother: Yes Complications: No - Diagnosis Test Laboratory: Temp Pulse Resp BP Pulse Ox 98.0 F 68 16 121/58 L 98 07/26/16 08:45 07/26/16 08:45 07/26/16 08:45 07/26/16 08:45 07/26/16 08:45 07/24/16 07/24/16 07/25/16 01:56 03:20 07:39 RBC 4.53 3.82 Hgb 13.2 11.1 L D Hct 38.8 32.9 L Urine Opiates Screen NEGATIVE - Discharge information/Instructions Discharge Activity: Activity As Tolerated, No Lifting Over 10 Pounds, Pelvic Rest, No tub bath Discharge Diet: As Tolerated, Regular Disposition: HOME, SELF-CARE Follow [facility]: [facility] in: 4, Weeks
== END 2016-07-26 13:25 | disposition home or self-care (01) | DRG 775 ==
LOC: LC 01:44 → LR 02:43 → 2S 07:42
PROVIDERS: ADMIT Student in an Organized Health Care Education/Training Program; ATTEND Student in an Organized Health Care Education/Training Program
PROC: 10E0XZZ Delivery of Products of Conception, External Approach (ICD-10-PCS; principal; 2016-07-24)
PROC: 0HQ9XZZ Repair Perineum Skin, External Approach (ICD-10-PCS; 2016-07-24)
PROC: 3E0234Z Introduction of Serum, Toxoid and Vaccine into Muscle, Percutaneous Approach (ICD-10-PCS; 2016-07-25)
DX: O24.420 Gestational diabetes mellitus in childbirth, diet controlled (principal); O36.0930 Maternal care for other rhesus isoimmunization, third trimester, not applicable or unspecified; O62.3 Precipitate labor; O69.81X0 Labor and delivery complicated by cord around neck, without compression, not applicable or unspecified; O70.0 First degree perineal laceration during delivery; O75.89 Other specified complications of labor and delivery; M53.3 Sacrococcygeal disorders, not elsewhere classified; Z3A.38 38 weeks gestation of pregnancy; Z37.0 Single live birth
CPT/HCPCS: 36415; 72190; 80307; 81005; 84112; 85025; 85027; 85461; 86592; 86850; 86870; 86900; 86901; J2590; J2790; J3490